=== PATIENT | female | born 1980 | race Caucasian/White ===

== ENCOUNTER → 2019-05-12 | Outpatient (CLI) | payer OTHER ==
[~2019-05-12] MED LIST: ACETAMINOPHEN-1 EAC1; IBUPROFEN 400400 M1; IBUPROFEN 600600 M1 PO; LANOLIN56 GM
== END ==
LOC: CAT 13:26
DX: Z13.6 Encounter for screening for cardiovascular disorders (principal); I25.10 Atherosclerotic heart disease of native coronary artery without angina pectoris; E78.00 Pure hypercholesterolemia, unspecified